=== PATIENT | female | born 1950 | race Caucasian/White ===

== ENCOUNTER → 2017-09-01 | Outpatient (CLI) | payer MEDICARE, OTHER ==
[~2017-09-01] MED LIST: ATOR-2 PO; COR25 PO; GABA800T97 PO; LEVPEN SQ; OMEP20CA4 PO; SITA1TAB8 PO; TRAM50TA PO
== END | disposition home or self-care (01) ==
LOC: US 07:52
PROVIDERS: ATTEND Internal Medicine Gastroenterology
DX: D64.9 Anemia, unspecified (principal); R10.9 Unspecified abdominal pain
CPT/HCPCS: 76700

== ENCOUNTER 2021-03-27 23:19 | Inpatient (IN) | payer MEDICARE, OTHER ==
[~2021-03-27] VITALS: Ht 152.4 cm; Wt 83.0 kg
[2021-03-28] MEDS ORDERED: FUROSEMIDE 20MG/2ML VIAL IVP ONE (00:30)
[2021-03-28 00:31] LABS: CHLORIDE 115 mEq/L (98-107)
[2021-03-28 00:32] LABS: BASOPHILS % 0.8 % (0.0-2.0); HEMATOCRIT. 24.6 % (36.0-48.0); HEMOGLOBIN. 8.6 g/dL (12.0-16.0); MEAN CORPUSCULAR HEMOGLOBIN 31.7 pg (28.0-32.0); MEAN CORPUSCULAR VOLUME 91.2 fL (81.0-99.0); MEAN PLATELET VOLUME 8.7 fl (7.4-10.4); MONOCYTES % 9.6 % (2.0-8.0); NEUTROPHILS % 58.6 % (40.0-76.0); PLATELET 109 x1000/uL (130-400); RED BLOOD CELL COUNT 2.69 mill/uL (4.2-5.4); RED CELL DISTRIBUTION WIDTH 16.7 % (11.6-14.6)
[2021-03-28] MEDS ORDERED: ACETAMINOPHEN 325MG TABLET PO PRN ×2 (11:15)
[2021-03-28] MEDS ORDERED: ONDANSETRON HCL 4MG/2ML INJ IV PRN (11:15)
[2021-03-28] MEDS ORDERED: IPRATROPIUM/ALBUTEROL 0.5-3(2.5)MG/3ML NEB HHN PRN (11:15)
[2021-03-28] MEDS ORDERED: DOCUSATE SODIUM 100MG CAPSULE PO PRN (11:15)
[2021-03-28] MEDS ORDERED: CLONIDINE 0.1MG TABLET PO PRN (11:15)
[2021-03-28] MEDS ORDERED: HYDROCODONE/ACETAMINOPHEN 5/325MG TABLET PO PRN (11:15)
[2021-03-28] MEDS ORDERED: LORAZEPAM 0.5MG TABLET PO PRN (11:15)
[2021-03-28] MEDS ORDERED: OMEPRAZOLE 20MG CAPSULE EXTENDED RELEASE PO PRN (11:30)
[2021-03-28] MEDS ORDERED: CARVEDILOL 12.5MG TABLET PO SCH (11:30)
[2021-03-28] MEDS: FUROSEMIDE 40MG/4ML VIAL IVP SCH (11:38)
[2021-03-28] MEDS: HYDRALAZINE HCL 25MG TABLET PO SCH ×2 (14:08→21:57)
[2021-03-28] MEDS: ENOXAPARIN 30MG/0.3ML SYR SUBCUT SCH (14:09)
[2021-03-28] MEDS: INSULIN GLARGINE UD 100 UNITS/ML SYR SUBCUT SCH ×2 (14:10→22:11)
[2021-03-28] MEDS: GABAPENTIN 100MG CAPSULE PO SCH ×2 (15:42→21:56)
[2021-03-28 20:00] VITALS: BP 143/55
[2021-03-28] MEDS ORDERED: NALOXONE HCL 0.4MG/ML VIAL IV PRN (21:15)
[2021-03-28] MEDS: ATORVASTATIN CALCIUM 40MG TABLET PO SCH (21:57)
[2021-03-29] VITALS (8 sets, daily range): BP systolic 96–143; BP diastolic 33–56
[2021-03-29] MEDS ORDERED: DEXTROSE 50% WATER 50ML SYRINGE IV PRN (00:30)
[2021-03-29] MEDS: HYDRALAZINE HCL 25MG TABLET PO SCH (04:11)
[2021-03-29] MEDS: GABAPENTIN 100MG CAPSULE PO SCH ×3 (04:56→21:21)
[2021-03-29] MEDS: BLOOD SUGAR DIAGNOSTIC STRIP TEST SCH ×4 (06:57→20:18)
[2021-03-29] MEDS: INSULIN LISPRO 100 UNITS/ML SUBCUT SCH ×4 (07:04→21:25)
[2021-03-29] MEDS: FUROSEMIDE 40MG/4ML VIAL IVP SCH (08:24)
[2021-03-29 08:29] LABS: BASOPHILS % 0.6 % (0.0-2.0); EOSINOPHILS % 3.3 % (0.0-5.0); HEMATOCRIT. 23.4 % (36.0-48.0); HEMOGLOBIN. 7.8 g/dL (12.0-16.0); LYMPHOCYTES % 40.8 % (20.0-50.0); MEAN CORPUSCULAR HEMOGLOBIN 31.1 pg (28.0-32.0); MEAN PLATELET VOLUME 9.4 fl (7.4-10.4); MONOCYTES % 9.1 % (2.0-8.0); NEUTROPHILS % 46.2 % (40.0-76.0); PLATELET 86 x1000/uL (130-400); RED BLOOD CELL COUNT 2.52 mill/uL (4.2-5.4); RED CELL DISTRIBUTION WIDTH 16.6 % (11.6-14.6)
[2021-03-29 08:42] LABS: T4 FREE 0.71 ng/dL (0.76-1.46)
[2021-03-29] MEDS ORDERED: AMLODIPINE 5MG TABLET PO SCH (09:00)
[2021-03-29] MEDS: INSULIN GLARGINE UD 100 UNITS/ML SYR SUBCUT SCH ×2 (09:51→21:24)
[2021-03-29] MEDS: ENOXAPARIN 30MG/0.3ML SYR SUBCUT SCH (12:00)
[2021-03-29] MEDS: LEVOTHYROXINE SODIUM 50MCG TABLET PO SCH (13:33)
[2021-03-29 14:28] LABS: TOTAL IRON BINDING CAPACITY 275 ug/dL (250-450)
[2021-03-29 17:07] LABS: FERRITIN 46 ng/mL (10-291)
[2021-03-29 17:17] LABS: FOLIC ACID (FOLATE) SERUM > 20.00 ng/mL (>5.38)
[2021-03-29 17:19] LABS: HEPATITIS B SURFACE ANTIGEN NEGATIVE
[2021-03-29 17:23] LABS: VITAMIN B12 SERUM 1639 pg/mL (211-911)
[2021-03-29] MEDS ORDERED: LATA2.5D14 EACHEYE (20:22)
[2021-03-29] MEDS ORDERED: TIMO5DRO32 EACHEYE ×2 (20:27)
[2021-03-29] MEDS ORDERED: BRIM5DRO6 EACHEYE (20:29)
[2021-03-29] MEDS: ATORVASTATIN CALCIUM 40MG TABLET PO SCH (21:21)
[2021-03-30] VITALS: BP 125/42
[2021-03-30 04:00] VITALS: BP 123/27
[2021-03-30] MEDS: GABAPENTIN 100MG CAPSULE PO SCH ×3 (06:34→22:05)
[2021-03-30] MEDS: BLOOD SUGAR DIAGNOSTIC STRIP TEST SCH ×4 (06:43→20:53)
[2021-03-30] MEDS: INSULIN LISPRO 100 UNITS/ML SUBCUT SCH ×4 (06:43→21:00)
[2021-03-30] MEDS: LEVOTHYROXINE SODIUM 50MCG TABLET PO SCH (07:36)
[2021-03-30 08:00] VITALS: BP 110/43
[2021-03-30] MEDS: FUROSEMIDE 40MG/4ML VIAL IVP SCH (09:59)
[2021-03-30] MEDS: INSULIN GLARGINE UD 100 UNITS/ML SYR SUBCUT SCH ×2 (10:01→22:06)
[2021-03-30 12:00] VITALS: BP 129/43
[2021-03-30 16:00] VITALS: BP 130/46
[2021-03-30 16:56] LABS: BASOPHILS % 0.7 % (0.0-2.0); EOSINOPHILS % 2.5 % (0.0-5.0); HEMATOCRIT. 25.4 % (36.0-48.0); HEMOGLOBIN. 8.4 g/dL (12.0-16.0); LYMPHOCYTES % 29.9 % (20.0-50.0); MEAN CORPUSCULAR VOLUME 93.3 fL (81.0-99.0); MEAN PLATELET VOLUME 9.2 fl (7.4-10.4); MONOCYTES % 6.3 % (2.0-8.0); NEUTROPHILS % 60.6 % (40.0-76.0); PLATELET 94 x1000/uL (130-400); RED BLOOD CELL COUNT 2.72 mill/uL (4.2-5.4); RED CELL DISTRIBUTION WIDTH 16.5 % (11.6-14.6)
[2021-03-30 20:00] VITALS: BP 149/42
[2021-03-30] MEDS: ATORVASTATIN CALCIUM 40MG TABLET PO SCH (22:05)
[2021-03-31] VITALS: BP 126/45
[2021-03-31 04:00] VITALS: BP 127/43
[2021-03-31] MEDS: BLOOD SUGAR DIAGNOSTIC STRIP TEST SCH ×4 (05:41→20:49)
[2021-03-31] MEDS: LEVOTHYROXINE SODIUM 50MCG TABLET PO SCH (05:47)
[2021-03-31] MEDS: GABAPENTIN 100MG CAPSULE PO SCH ×3 (05:47→21:23)
[2021-03-31] MEDS: INSULIN LISPRO 100 UNITS/ML SUBCUT SCH ×4 (05:49→21:37)
[2021-03-31 07:06] LABS: BASOPHILS % 0.6 % (0.0-2.0); EOSINOPHILS % 2.6 % (0.0-5.0); HEMATOCRIT. 24.5 % (36.0-48.0); HEMOGLOBIN. 8.3 g/dL (12.0-16.0); LYMPHOCYTES % 32.4 % (20.0-50.0); MEAN CORPUSCULAR HEMOGLOBIN 30.9 pg (28.0-32.0); MEAN CORPUSCULAR VOLUME 91.3 fL (81.0-99.0); MEAN PLATELET VOLUME 9.4 fl (7.4-10.4); MONOCYTES % 9.9 % (2.0-8.0); NEUTROPHILS % 54.5 % (40.0-76.0); PLATELET 88 x1000/uL (130-400); RED BLOOD CELL COUNT 2.69 mill/uL (4.2-5.4); RED CELL DISTRIBUTION WIDTH 16.5 % (11.6-14.6)
[2021-03-31 08:00] VITALS: BP 125/51
[2021-03-31] MEDS: FUROSEMIDE 40MG/4ML VIAL IVP SCH (09:50)
[2021-03-31] MEDS: INSULIN GLARGINE UD 100 UNITS/ML SYR SUBCUT SCH ×2 (09:51→21:37)
[2021-03-31 12:00] VITALS: BP 122/69
[2021-03-31 16:00] VITALS: BP 118/59
[2021-03-31 20:00] VITALS: BP 156/60
[2021-03-31] MEDS: ATORVASTATIN CALCIUM 40MG TABLET PO SCH (21:22)
[2021-04-01] VITALS: BP 138/38
[2021-04-01 04:00] VITALS: BP 133/45
[2021-04-01] MEDS: BLOOD SUGAR DIAGNOSTIC STRIP TEST SCH ×3 (05:13→17:10)
[2021-04-01] MEDS: GABAPENTIN 100MG CAPSULE PO SCH ×2 (05:20→13:21)
[2021-04-01] MEDS: LEVOTHYROXINE SODIUM 50MCG TABLET PO SCH (05:20)
[2021-04-01] MEDS: INSULIN LISPRO 100 UNITS/ML SUBCUT SCH ×3 (05:33→17:40)
[2021-04-01 06:19] LABS: BASOPHILS % 0.6 % (0.0-2.0); EOSINOPHILS % 2.7 % (0.0-5.0); HEMATOCRIT. 25.3 % (36.0-48.0); HEMOGLOBIN. 8.4 g/dL (12.0-16.0); MEAN CORPUSCULAR HEMOGLOBIN 30.7 pg (28.0-32.0); MEAN CORPUSCULAR VOLUME 92.8 fL (81.0-99.0); MEAN PLATELET VOLUME 9.4 fl (7.4-10.4); MONOCYTES % 9.9 % (2.0-8.0); NEUTROPHILS % 58.8 % (40.0-76.0); PLATELET 97 x1000/uL (130-400); RED BLOOD CELL COUNT 2.73 mill/uL (4.2-5.4); RED CELL DISTRIBUTION WIDTH 16.3 % (11.6-14.6)
[2021-04-01 08:00] VITALS: BP 127/42
[2021-04-01] MEDS: FUROSEMIDE 40MG/4ML VIAL IVP SCH (08:54)
[2021-04-01] MEDS: INSULIN GLARGINE UD 100 UNITS/ML SYR SUBCUT SCH (10:39)
[2021-04-01 12:00] VITALS: BP 161/62
[2021-04-01] MEDS ORDERED: FURO40TA5 MT (13:31)
[2021-04-01 16:00] VITALS: BP 113/47
[2021-04-01 18:11] VITALS: BP 106/76
== END 2021-04-01 20:30 | disposition home or self-care (01) | DRG 194 ==
LOC: ER 23:19 → MICUSO 03-28 00:39 → 8WST 03-28 16:54
PROVIDERS: ADMIT Internal Medicine; ATTEND Internal Medicine
DX: I13.0 Hypertensive heart and chronic kidney disease with heart failure and stage 1 through stage 4 chronic kidney disease, or unspecified chronic kidney disease (principal); J96.00 Acute respiratory failure, unspecified whether with hypoxia or hypercapnia; N17.9 Acute kidney failure, unspecified; D69.6 Thrombocytopenia, unspecified; E11.649 Type 2 diabetes mellitus with hypoglycemia without coma; I50.43 Acute on chronic combined systolic (congestive) and diastolic (congestive) heart failure; I48.0 Paroxysmal atrial fibrillation; D64.9 Anemia, unspecified; D72.821 Monocytosis (symptomatic); E66.9 Obesity, unspecified; K21.9 Gastro-esophageal reflux disease without esophagitis; D72.819 Decreased white blood cell count, unspecified; E11.42 Type 2 diabetes mellitus with diabetic polyneuropathy; E78.00 Pure hypercholesterolemia, unspecified; E11.51 Type 2 diabetes mellitus with diabetic peripheral angiopathy without gangrene; I25.5 Ischemic cardiomyopathy; R26.89 Other abnormalities of gait and mobility; Z20.822 Contact with and (suspected) exposure to COVID-19; R00.1 Bradycardia, unspecified; E03.8 Other specified hypothyroidism; Z79.4 Long term (current) use of insulin; Z68.35 Body mass index [BMI] 35.0-35.9, adult; Z71.3 Dietary counseling and surveillance; E11.22 Type 2 diabetes mellitus with diabetic chronic kidney disease; N18.30 Chronic kidney disease, stage 3 unspecified
CPT/HCPCS: 36415; 71045; 76770; 80048; 80053; 80061; 82607; 82728; 82746; 82962; 83036; 83540; 83550; 83880; 84439; 84443; 84481; 84484; 85025; 86705; 86709; 86803; 87340; 87426; 93005; 93306; 93923; 99285; J1815; J1940

== ENCOUNTER 2022-01-10 17:26 | Emergency (ER) | payer MEDICARE, OTHER ==
[~2022-01-10] VITALS: Ht 165.1 cm; Wt 65.0 kg
[~2022-01-10 17:26] MED LIST changes: +BRIM5DRO6 EACHEYE; -COR25 PO; +FURO40TA5 MT; +LATA2.5D14 EACHEYE; +TIMO5DRO32 EACHEYE
[2022-01-10] MEDS ORDERED: ACETAMINOPHEN 325MG TABLET PO STA (17:46)
[2022-01-10] MEDS ORDERED: SODIUM CHLORIDE 0.9% 1000ML BAG (SEPSIS BOLUS) IV ONE (18:00)
[2022-01-10 18:15] LABS: BASOPHILS % 0.2 % (0.0-2.0); EOSINOPHILS % 0.2 % (0.0-5.0); HEMATOCRIT. 32.1 % (36.0-48.0); HEMOGLOBIN. 10.5 g/dL (12.0-16.0); LYMPHOCYTES % 7.9 % (20.0-50.0); MEAN CORPUSCULAR HEMOGLOBIN 29.9 pg (28.0-32.0); MEAN CORPUSCULAR VOLUME 91.2 fL (81.0-99.0); MEAN PLATELET VOLUME 9.5 fl (7.4-10.4); MONOCYTES % 7.1 % (2.0-8.0); NEUTROPHILS % 84.6 % (40.0-76.0); PLATELET 94 x1000/uL (130-400); RED BLOOD CELL COUNT 3.52 mill/uL (4.2-5.4); RED CELL DISTRIBUTION WIDTH 14.7 % (11.6-14.6)
[2022-01-10 18:20] LABS: CHLORIDE 104 mEq/L (98-107)
[2022-01-10 19:19] LABS: CLARITY URINE CLOUDY (CLEAR); COLOR URINE DARK YELLOW (YELLOW); KETONES URINE TRACE (NEGATIVE); LEUKOCYTE ESTERASE URINE 3+ (NEGATIVE); NITRITE URINE POSITIVE (NEGATIVE); OCCULT BLOOD URINE 3+ (NEGATIVE); PROTEIN URINE 3+ (NEGATIVE); SPECIFIC GRAVITY URINE 1.021 (1.005-1.030)
[2022-01-10] MEDS ORDERED: CEFTRIAXONE 1 G PREMIX 50 ML IV ONE (20:00)
[2022-01-11 07:54] VITALS: BP 128/42
== END 2022-01-11 09:09 | disposition short-term general hospital (02) ==
LOC: ER 17:26
DX: A41.9 Sepsis, unspecified organism (principal); N39.0 Urinary tract infection, site not specified; G93.41 Metabolic encephalopathy; Z20.822 Contact with and (suspected) exposure to COVID-19; I12.9 Hypertensive chronic kidney disease with stage 1 through stage 4 chronic kidney disease, or unspecified chronic kidney disease; E11.22 Type 2 diabetes mellitus with diabetic chronic kidney disease; N18.9 Chronic kidney disease, unspecified; Z79.84 Long term (current) use of oral hypoglycemic drugs
CPT/HCPCS: 36415; 71045; 74176; 80053; 81003; 83605; 84145; 84484; 85025; 87040; 87086; 87426; 87804; 96361; 96365; 99285; C9803; J0696; J7030